=== PATIENT | female | born 1965 | race Caucasian/White ===

== ENCOUNTER 2017-10-05 12:49 | Inpatient (IN) | payer OTHER ==
[~2017-10-05] VITALS: Ht 165.1 cm; Wt 61.1 kg
[2017-10-05 14:45] LABS: BASOPHIL (%) 0.5 % (0-1); BASOPHIL COUNT 0.1 K/uL (0-0.1); EOSINOPHIL (%) 0.5 % (0-5); EOSINOPHIL COUNT 0.1 K/uL (0-0.3); HEMATOCRIT 38.9 % (36.0-46.0); HEMOGLOBIN 13.3 G/DL (11.9-15.5); IMMATURE GRANULOCYTE (%) 0.4 % (0.0-0.7); LYMPHOCYTE (%) 24.6 % (15-42); LYMPHOCYTE COUNT 2.6 K/uL (1.0-2.8); MCH 31.3 PG (29.0-34.0); MCHC 34.2 G/DL (30.0-36.0); MCV 91.5 FL (83-99); MONOCYTE (%) 7.4 % (3-12); MONOCYTE COUNT 0.8 K/uL (0-0.8); NEUTROPHIL (%) 66.6 % (45-76); NEUTROPHIL COUNT 7.2 K/uL (1.8-6.4); PLATELET COUNT 230 K/uL (156-360); RBC DIS.WIDTH-CV 13.2 % (11.8-14.6); RED BLOOD COUNT 4.25 M/uL (3.80-5.20); WHITE BLOOD COUNT 10.7 K/uL (4.1-10.2)
[2017-10-05 14:55] LABS: CHLORIDE 103 mEq/L (99-109); POTASSIUM 3.8 mEq/L (3.7-5.4); SODIUM 136 mEq/L (136-147)
[2017-10-05 14:57] LABS: GLUCOSE 110 mg/dL (70-99)
[2017-10-05 15:01] LABS: CREATININE 0.9 mg/dL (0.6-1.3); GFR ESTIMATE (CALCULATED) > 59 mL/min/
[2017-10-05 15:02] LABS: UREA NITROGEN (BUN) 19 mg/dL (9-23)
[2017-10-05 15:07] LABS: TROP-I INTERPRETATION NEGATIVE; TROPONIN-I 0.13 ng/mL (0.0-0.30)
[2017-10-05 16:11] LABS: TROP-I INTERPRETATION NEGATIVE; TROPONIN-I 0.29 ng/mL (0.0-0.30)
[2017-10-05] MEDS ORDERED: PROZAC20 MG PO (17:03)
[2017-10-05] MEDS ORDERED: PROZAC10 MG PO (17:03)
[2017-10-05] MEDS ORDERED: LORAZEPAM0.5 MG PO (17:05)
[2017-10-05 19:55] VITALS: BP 121/83
[2017-10-05 23:01] LABS: TROP-I INTERPRETATION INDETERMINATE; TROPONIN-I 0.38 ng/mL (0.0-0.30)
[2017-10-05 23:31] VITALS: BP 112/64
[2017-10-06 04:22] VITALS: BP 92/56
[2017-10-06 05:55] LABS: TROP-I INTERPRETATION NEGATIVE; TROPONIN-I 0.23 ng/mL (0.0-0.30)
[2017-10-06 08:00] VITALS: BP 111/69
== END 2017-10-06 14:15 | disposition home or self-care (01) | DRG 310 ==
LOC: EME 12:49 → EDOF 16:29 → ENRESERV 16:31 → 4EAST 19:24
PROVIDERS: Emergency Medicine; Hospitalist
DX: I47.1 Supraventricular tachycardia (principal); F41.9 Anxiety disorder, unspecified
CPT/HCPCS: 80048; 84484; 85025; 93005; 99281; 99285; J1650; J7030